=== PATIENT | male | born 1990 | race Caucasian/White ===

== ENCOUNTER 2023-09-26 16:24 | Emergency (ER) | payer MEDICAID ==
[~2023-09-26] VITALS: Ht 177.8 cm; Wt 84.8 kg
[2023-09-26] MEDS ORDERED: PREG300C PO (18:43)
[2023-09-26 19:03] VITALS: BP 133/73; TEMP 98.8; O2SAT 100
[2023-09-28] MEDS ORDERED: PREG300C PO (14:10)
== END 2023-09-26 19:04 | disposition home or self-care (01) ==
LOC: ER 16:42
DX: G40.909 Epilepsy, unspecified, not intractable, without status epilepticus (principal); Z76.0 Encounter for issue of repeat prescription; Z60.2 Problems related to living alone